=== PATIENT | female | born 1960 | race Caucasian/White ===

== ENCOUNTER 2023-09-08 11:48 | Day surgery (SDC) | payer OTHER ==
[~2023-09-08] VITALS: Ht 165.1 cm; Wt 86.7 kg
[~2023-09-08 11:48] MED LIST: ALBU90OI61 INH; ASPI81CH PO; B Complex #11 EACH PO; CHOL10002 PO; Lactated Ringer's 1,000 ML IV ONE; Naprosyn500 MG PO; PRAV20 PO; Robaxin500 MG PO; propofoL 50 ML IV ONE
[2023-09-08] MEDS ORDERED: OMEP20ER (13:24)
[2023-09-08] MEDS ORDERED: C COMPLEX1000 M1 (13:24)
[2023-09-08] MEDS ORDERED: ATOR10 (13:26)
[2023-09-08] MEDS ORDERED: NIFEDIPINE (13:29)
[2023-09-08] MEDS ORDERED: Lactated Ringer's 1,000 ML IV ONE (13:44)
[2023-09-08 15:00] VITALS: BP 117/68
== END 2023-09-08 14:50 | disposition home or self-care (01) ==
LOC: ORSCSDS 11:48
PROVIDERS: Surgery
PROC: 0DJD8ZZ Inspection of Lower Intestinal Tract, Via Natural or Artificial Opening Endoscopic (ICD-10-PCS; principal; 2023-09-08 13:45)
DX: K60.2 Anal fissure, unspecified (principal); Z86.010 Personal history of colon polyps; K64.4 Residual hemorrhoidal skin tags; Z79.899 Other long term (current) drug therapy
CPT/HCPCS: J2704; J7120